=== PATIENT | male | born 1970 | race Caucasian/White ===

== ENCOUNTER 2021-09-02 07:52 | Emergency (ER) | payer OTHER ==
[~2021-09-02] VITALS: Ht 180.3 cm; Wt 113.6 kg
[~2021-09-02 07:52] MED LIST: ADLT ASA LOW81 MG OR; ATENOLOL50 MG OR; CHANTIX PO; NO MEDS; SERTRALINE25 MG OR; ZANTAC150 M1 OR; ZANTAC25 MG OR
[2021-09-02] MEDS ORDERED: CYCLOBENZAPRINE10 MG PO (09:15)
[2021-09-02] MEDS ORDERED: MELOXICAM15 MG PO (09:15)
[2021-09-02 09:18] VITALS: BP 173/102
== END 2021-09-02 09:23 | disposition home or self-care (01) | DRG 556 ==
LOC: ED 07:52
DX: M25.512 Pain in left shoulder (principal); M62.838 Other muscle spasm; S00.93XA Contusion of unspecified part of head, initial encounter; S00.91XA Abrasion of unspecified part of head, initial encounter; I10 Essential (primary) hypertension; W55.22XA Struck by cow, initial encounter; Y93.K9 Activity, other involving animal care; Y92.79 Other farm location as the place of occurrence of the external cause

== ENCOUNTER 2022-06-01 12:05 | Observation (INO) | payer OTHER ==
[~2022-06-01] VITALS: Ht 180.3 cm; Wt 118.0 kg
[~2022-06-01 12:05] MED LIST changes: +CYCLOBENZAPRINE10 MG PO; +MELOXICAM15 MG PO
[2022-06-01] MEDS ORDERED: NORVASC5 M1 PO (12:45)
[2022-06-01] MEDS ORDERED: LISINOPRIL10 MG PO (12:45)
[2022-06-01] MEDS ORDERED: ESCITALOPRAM OX20 MG PO (12:46)
[2022-06-01] MEDS ORDERED: ATORVASTATIN CA20 MG PO (12:47)
[2022-06-01] MEDS ORDERED: CRESTOR10 MG PO (12:48)
[2022-06-01] MEDS ORDERED: ACCOLATE10 MG PO (12:48)
[2022-06-01 13:15] LABS: BASO% 0.3 % (0-3); EOS% 1.2 % (0-8); HEMATOCRIT 47.5 % (39.0-50.0); HEMOGLOBIN 16.3 g/dl (14.0-18.0); IMMATURE GRANULOCYTES 0.1 % (0.0-5.0); LYMPH% 30.8 % (15-41); MEAN CORPUSCULAR HGB 30.2 pG CALC (26.0-32.0); MEAN CORPUSCULAR HGB CONC 34.3 g/dL CAL (32.0-36.0); MONO% 4.3 % (2-13); NEUT# 5.84 thou/uL (1.82-7.42); NEUT% 63.3 % (42-76); RED BLOOD COUNT 5.4 mill/uL (4.70-6.10); RED CELL DISTRI WIDTH 12.7 % (11.5-15.5)
[2022-06-01 13:32] LABS: ANION GAP 11 (6-22 (CALC)); BUN 11 mg/dL (9-20); BUN/CREATININE RATIO 10 (12-20 (CALC)); CARBON DIOXIDE 27 mmol/l (22-30); CHLORIDE 101 mmol/l (95-108); CREATININE 1.2 mg/dL (0.7-1.3); GFR FOR AFR.AMER. > 60 ML/MIN (>=60 (CALC)); GFR OTHER RACES > 60 ML/MIN (>=60 (CALC)); LIPASE 200 u/l (23-300); POTASSIUM 3.4 mmol/l (3.5-5.1); SODIUM 136 mmol/l (137-146)
[2022-06-01 13:35] LABS: ALBUMIN 4.8 g/dL (3.2-5.0); ALKALINE PHOSPHATASE 281 u/l (38-126); BILIRUBIN, TOTAL 3.4 mg/dL (0.0-1.4); SGOT/AST > 750 u/l (17-59); TOTAL PROTEIN 8.3 g/dL (6.3-8.2)
[2022-06-01 17:10] LABS: URINE BILIRUBIN - DIPSTICK NEGATIVE (NEGATIVE); URINE BLOOD DIPSTICK NEGATIVE (NEGATIVE); URINE COLOR YELLOW; URINE GLUCOSE - DIPSTICK NEGATIVE (NEGATIVE); URINE KETONE NEGATIVE (NEGATIVE); URINE LEUK ESTERASE NEGATIVE (NEGATIVE); URINE PROTEIN - DIPSTICK TRACE mg/dL (NEG-TRACE)
[2022-06-01 17:13] LABS: URINE NITRITE - DIPSTICK NEGATIVE (Negative)
[2022-06-01 20:00] VITALS: BP 170/94
[2022-06-02] VITALS (9 sets, daily range): BP systolic 100–147; BP diastolic 65–81
[2022-06-02 06:19] LABS: BASO% 0.4 % (0-3); EOS% 2.7 % (0-8); HEMATOCRIT 43.8 % (39.0-50.0); HEMOGLOBIN 14.8 g/dl (14.0-18.0); IMMATURE GRANULOCYTES 0.1 % (0.0-5.0); LYMPH% 37.7 % (15-41); MEAN CELL VOLUME 89.9 fL CALC (80.0-100.0); MEAN CORPUSCULAR HGB 30.4 pG CALC (26.0-32.0); MEAN CORPUSCULAR HGB CONC 33.8 g/dL CAL (32.0-36.0); MONO% 5.5 % (2-13); NEUT# 3.58 thou/uL (1.82-7.42); NEUT% 53.6 % (42-76); RED BLOOD COUNT 4.87 mill/uL (4.70-6.10); RED CELL DISTRI WIDTH 12.7 % (11.5-15.5)
[2022-06-02 06:33] LABS: CREATININE 1.7 mg/dL (0.7-1.3); POTASSIUM 3.4 mmol/l (3.5-5.1); TOTAL PROTEIN 6.8 g/dL (6.3-8.2)
[2022-06-02 06:34] LABS: BILIRUBIN, TOTAL 1.9 mg/dL (0.0-1.4)
[2022-06-03 00:11] VITALS: BP 137/64
[2022-06-03 05:31] LABS: BASO% 0.4 % (0-3); EOS% 1.7 % (0-8); HEMATOCRIT 44.3 % (39.0-50.0); HEMOGLOBIN 14.8 g/dl (14.0-18.0); IMMATURE GRANULOCYTES 0.1 % (0.0-5.0); LYMPH% 33.7 % (15-41); MEAN CELL VOLUME 90.6 fL CALC (80.0-100.0); MEAN CORPUSCULAR HGB 30.3 pG CALC (26.0-32.0); MEAN CORPUSCULAR HGB CONC 33.4 g/dL CAL (32.0-36.0); MONO% 4.1 % (2-13); NEUT# 4.22 thou/uL (1.82-7.42); RED BLOOD COUNT 4.89 mill/uL (4.70-6.10)
[2022-06-03 05:57] LABS: ALKALINE PHOSPHATASE 217 u/l (38-126); ANION GAP 9 (6-22 (CALC)); BILIRUBIN, TOTAL 1.6 mg/dL (0.0-1.4); BUN 10 mg/dL (9-20); BUN/CREATININE RATIO 8 (12-20 (CALC)); CARBON DIOXIDE 24 mmol/l (22-30); CHLORIDE 109 mmol/l (95-108); CREATININE 1.3 mg/dL (0.7-1.3); GFR FOR AFR.AMER. > 60 ML/MIN (>=60 (CALC)); GFR OTHER RACES 58 ML/MIN (>=60 (CALC)); POTASSIUM 3.9 mmol/l (3.5-5.1); SGOT/AST 428 u/l (17-59); SODIUM 138 mmol/l (137-146); TOTAL PROTEIN 6.8 g/dL (6.3-8.2)
[2022-06-03 06:40] VITALS: BP 137/68
[2022-06-03] MEDS ORDERED: PERCOCET 5/325M1 TAB PO (09:17)
[2022-06-03] MEDS ORDERED: PERCOCET 5/321 COMBO PO (09:37)
== END 2022-06-03 10:17 | disposition home or self-care (01) | DRG 419 ==
LOC: ED 12:05 → ED-I 14:01 → ED 14:01 → ED-I 14:40 → ED 14:55 → MS2 14:56
PROVIDERS: Family Medicine; ADMIT Surgery; ATTEND Surgery
PROC: 0FT44ZZ Resection of Gallbladder, Percutaneous Endoscopic Approach (ICD-10-PCS; principal; 2022-06-02)
PROC: BF001ZZ Plain Radiography of Bile Ducts using Low Osmolar Contrast (ICD-10-PCS; 2022-06-02)
DX: K80.00 Calculus of gallbladder with acute cholecystitis without obstruction (principal); K42.9 Umbilical hernia without obstruction or gangrene; I10 Essential (primary) hypertension; F41.9 Anxiety disorder, unspecified; Z20.822 Contact with and (suspected) exposure to COVID-19
CPT/HCPCS: G0378; J0131; J1610; Q9967; S0164